=== PATIENT | female | born 1950 | race Caucasian/White ===

== ENCOUNTER 2018-12-05 18:56 | Emergency (ER) | payer MEDICARE, OTHER ==
[2018-12-05] MEDS ORDERED: oxyCODONE 5 MG Tab PO ONE (21:14)
--- NOTE | 2018-12-05 21:17 | EDM.PDOC ---
ED HPI GENERAL MEDICAL PROBLEM - General Chief Complaint: ENT Problem Stated Complaint: NOSEBLEED Time Seen by Provider: 12/05/18 20:30 Source of Information: Reports: Patient History Limitations: Reports: No Limitations - History of Present Illness INITIAL COMMENTS - FREE TEXT/NARRATIVE: Andria is a 68 year old female, on plavix, secondary to watchman device placement, baby aspirin daily, has had a right sided nosebleed since 1500 this afternoon. Patient denies any symptoms such as dizziness or lightheadedness. Patient had a nose bleed last week as well, didn't last this long, has had her nose packed in the past. Patient is from [place], here on vacation. She did have her nose clamped in triage which was ineffective. Onset: Today Duration: Hour(s): (5) - Related Data Allergies Allergy/AdvReac Type Severity Reaction Status Date / Time No Known Allergies Allergy Verified 12/05/18 20:29 ED ROS ENT - Review of Systems Review Of Systems: ROS reveals no pertinent complaints other than HPI. ED EXAM, ENT - Physical Exam Exam: See Below Exam Limited By: No Limitations General Appearance: Alert, WD/WN, No Apparent Distress Nose: Active Bleeding Mouth/Throat: Normal Inspection Respiratory/Chest: No Respiratory Distress Cardiovascular: Tachycardia Extremities: Normal Inspection Neurological: Alert, Oriented, CN II-XII Intact Psychiatric: Normal Affect, Normal Mood Skin: Warm, Dry, Intact ED ENT PROCEDURES - Epistaxis Procedure Indication: Epistaxis Recent anticoagulants/antiplatlets: Yes Recent septal/nasal surgery: No Site of bleeding: Right Nare Clearing of clots: Patient Blew Nose Topical Meds: Phenylephrine Anterior Packing: Inflatable Nasal Tampon Local anesthesia - Lidocaine (Xylocaine): 1% Plain Local Anesthetic Volume: 1cc Complications: No (5.5 cm anterior rhino rocket placed, patient tolerated well with cessation of bleeding) Course - Vital Signs Last Recorded V/S: Last Vital Signs Temp 37.2 C 12/05/18 20:04 Pulse 106 H 12/05/18 20:04 Resp 16 12/05/18 20:04 BP 139/96 H 12/05/18 20:04 Pulse Ox 88 L 12/05/18 20:04 Andria is a 68 year old female, on plavix, presents to the ED today with persistent right sided epistaxis. Please refer to HPI and focused exam. Patient had right nare packed with 5.5 cm rhino rocket after topical anesthesia , tolerated well, no further bleeding. Given a dose of oxycodone for pain complaints here, will discharge home with a few Percocet for pain as needed. Patient to return on Thursday for removal, sooner if complications arise or other concerns. Narcotic safety/side effects discussed. Patient agreeable to plan of care and discharged in stable condition with her driving. - Orders/Labs/Meds Meds: Medications Discontinued Medications Generic Name Dose Route Start Last Admin Trade Name Freq PRN Reason Stop Dose Admin Tranexamic Acid 500 mg 12/05/18 20:14 Cyklokapron TOP 12/05/18 20:15 ONETIME ONE Departure - Departure Time of Disposition: 22:00 Disposition: Home, Self-Care 01 Condition: Good Clinical Impression: Epistaxis - Discharge Information Instructions: Nosebleed, [id number], Nosebleed, Adult Referrals: PCP,None [Primary Care Provider] - Additional Instructions: Return on Thursday to have packing removed. Return sooner if complications arise. You are find to use your CPAP.
== END 2018-12-05 21:55 | disposition home or self-care (01) ==
LOC: JP.ED 18:56
DX: R04.0 Epistaxis (principal)
CPT/HCPCS: 30901; 30903; 99282; 99282-25

== ENCOUNTER 2018-12-07 20:41 | Emergency (ER) | payer MEDICARE ==
--- NOTE | 2018-12-08 00:23 | EDM.PDOC ---
ED HPI GENERAL MEDICAL PROBLEM - General Chief Complaint: ENT Problem Stated Complaint: REMOVE PACKING Time Seen by Provider: 12/08/18 00:21 Source of Information: Reports: Patient, Family History Limitations: Reports: No Limitations - History of Present Illness INITIAL COMMENTS - FREE TEXT/NARRATIVE: 68-year-old female presents to the emergency department today for removal of nasal packing this was placed 3 days prior no complaints at this time denies pain Pain Score (Numeric/FACES): 0 - Related Data Allergies Allergy/AdvReac Type Severity Reaction Status Date / Time No Known Allergies Allergy Verified 12/08/18 00:17 Home Meds: Home Meds Allopurinol [Zyloprim] 100 mg PO DAILY 12/05/18 [History] Aspirin 81 mg PO DAILY 12/05/18 [History] Ferrous Sulfate [Iron] 325 mg PO DAILY 12/05/18 [History] Gabapentin [Neurontin] 300 mg PO BID 12/05/18 [History] Lisinopril [Prinivil] 50 mg PO BID 12/05/18 [History] Potassium Chloride 20 meq PO DAILY 12/05/18 [History] Torsemide 20 mg PO BID 12/05/18 [History] Vit A & D3 In Cod Liver Oil [Cod Liver Oil Softgel] 1 cap PO DAILY 12/05/18 [ History] metFORMIN [Riomet] 500 mg PO BIDMEALS 12/05/18 [History] Past Medical History HEENT History: Reports: Epistaxis Cardiovascular History: Reports: Heart Failure, Hypertension Respiratory History: Reports: COPD, Other (See Below) Other Respiratory History: on 24hour oxygen and cpap Genitourinary History: Reports: Other (See Below) Other Genitourinary History: renal cancer PICKLING GRADER History: Reports: Endometriosis, Other (See Below) Other PICKLING GRADER History: endometrial cancer Endocrine/Metabolic History: Reports: Diabetes, Type II Hematologic History: Reports: Anemia, Iron Deficiency Oncologic (Cancer) History: Reports: Renal, Uterine - Past Surgical History GI Surgical History: Reports: Appendectomy, Bariatric Procedure Female Surgical History: Reports: Nephrectomy Social & Family History - Caffeine Use Caffeine Use: Reports: Coffee ED ROS GENERAL - Review of Systems Review Of Systems: See Below HEENT: Reports: No Symptoms ED EXAM, GENERAL - Physical Exam Exam: See Below Exam Limited By: No Limitations General Appearance: Alert, WD/WN, No Apparent Distress Nose: Normal Inspection, Normal Mucosa, No Blood, Other (After deflation of the balloon the Rhino Rocket was removed without difficulty no blood noted) Course - Vital Signs Last Recorded V/S: Last Vital Signs Temp 97.8 F 12/08/18 00:33 Pulse 103 H 12/08/18 00:33 Resp 16 12/08/18 00:33 BP 134/64 12/08/18 00:33 Pulse Ox 90 L 12/08/18 00:33 Departure - Departure Time of Disposition: 00:41 Disposition: Home, Self-Care 01 Condition: Good Clinical Impression: Epistaxis - Discharge Information Referrals: PCP,None [Primary Care Provider] - Forms: ED Department Discharge Additional Instructions: Follow-up primary care as needed - Assessment/Plan Plan: Assessment Removal of Rhino Rocket Plan Follow-up primary care as
== END 2018-12-08 01:06 | disposition home or self-care (01) ==
LOC: JP.ED 20:41
DX: Z48.00 Encounter for change or removal of nonsurgical wound dressing (principal); I11.0 Hypertensive heart disease with heart failure; I50.9 Heart failure, unspecified; E11.9 Type 2 diabetes mellitus without complications; D64.9 Anemia, unspecified; Z79.82 Long term (current) use of aspirin; Z79.899 Other long term (current) drug therapy; Z90.49 Acquired absence of other specified parts of digestive tract; Z98.84 Bariatric surgery status
CPT/HCPCS: 30901; 99281; 99282